=== PATIENT | female | born 1945 | race Caucasian/White ===

== ENCOUNTER 2021-10-14 10:37 | Inpatient (IN) | payer MEDICARE, SELFPAY ==
[2021-10-14] VITALS (9 sets, daily range): BP systolic 161–193; BP diastolic 54–94; PULSE 82–101; RESP 16–18; TEMP 36.6–37.1; O2SAT 95–98; BMI 23.0; BMI 22.4
--- NOTE | 2021-10-14 11:19 | ED.VIS.GI ---
HPI HPI - GI History of Present Illness Chief Complaint: Nausea/Vomiting Narrative Narrative: 76-year-old female presenting with nausea/vomiting. She states that she has had this for about a week. She states initially she was able to hold down some food and fluids but has gradually not been able to eat or drink anything. She has been throwing up her blood pressure medication as well. She has not had a fever. She denies abdominal pain except for bloating and cramping generally. She does not have any urinary complaints. She denies chest pain, palpitations, shortness of breath. She has had a mild headache intermittently. She states has been sleeping a lot. Patient also states she was recently around her granddaughter who had mono. PFSH [facility] Home Medications amlodipine 10 mg PO DAILY 10/14/21 [History Last Taken Unknown] metoprolol tartrate 50 mg PO BID 10/14/21 [History Last Taken Unknown] Allergy/AdvReac Type Severity Reaction Status Date / Time No Known Allergies Allergy Verified 10/14/21 10:47 Social History Smoking Status: Never smoker ROS ROS ED Constitutional Constitutional ED: Denies chills or fever(s) ENT ENT ED: Denies rhinorrhea or sore throat Cardiovascular Cardiovascular: Denies chest pain or palpitations Respiratory/Chest Respiratory/Chest: Denies cough, dyspnea or sputum Gastrointestinal Gastrointestinal: Reports nausea and vomiting Genitourinary Genitourinary ED: Denies dysuria or hematuria Musculoskeletal Musculoskeletal: Denies myalgias or neck pain Integumentary Denies Abrasions or rash Neurologic Neurologic: Reports headache(s) EXAM Physical Exam Const Vital Signs: 10/14/21 10:39 10/14/21 11:12 10/14/21 14:07 Temperature 98.7 F Temperature Source Oral Pulse Rate 101 H 86 87 Respiratory Rate 16 16 Blood Pressure 161/75 H 169/94 H Blood Pressure Mean 103 119 Pulse Ox 97 97 97 Oxygen Delivery Method Room Air Room Air Room Air Oxygen Flow Rate (L/min) 10/14/21 14:21 Temperature Temperature Source Pulse Rate Respiratory Rate Blood Pressure 169/54 H Blood Pressure Mean 92 Pulse Ox 95 Oxygen Delivery Method Nasal Cannula Oxygen Flow Rate (L/min) 3 Positive well nourished and unkempt General Appearance ED: unkempt and NAD; Negative for pallor HEENT Reports dry mucous membranes HEENT Narrative: No posterior oropharyngeal erythema or edema. No exudates. Patent airway without stridor. normocephalic and atraumatic Mouth ED: Yes dry mucous membranes Mouth: dry mucous membranes Eyes PERRL and EOMs intact bilaterally Neck no lymphadenopathy and supple Resp normal respiratory effort and clear to auscultation bilaterally Cardio regular rate and regular rhythm GI non-tender and non-distended Palpation: soft Back/Spine no CVA tenderness Neuro Sensorium / Orientation: alert, oriented to person, oriented to place and oriented to time Psych mental status grossly normal and thought process normal Appearance: unkempt Skin General Skin Exam: Negative for jaundice or pallor Lesions: no lesions Rashes: no rashes MDM MDM MDM Narrative Medical decision making narrative: Patient initially presenting with nausea and vomiting. Patient was given a liter of IV fluids, Zofran. She felt improved. I obtained blood work which show she has a 15.8 white count. Her hemoglobin hematocrit are stable. There is a left shift of 8.3. Creatinine is 1.04 however the BUN is 29. Potassium is low at 3.0 and magnesium is obtained which is 1.6 which is borderline. The patient will need more IV fluids which will likely dilute her magnesium and potassium more than likely she will need admission for this. She does have a slight bump in her AST and her alkaline phosphatase at 118 and 305 respectively. Bilirubin is also elevated at 1.10. On reevaluation the patient stated she felt well. I told her I was can order her another liter of normal saline. Because of the patient's white blood cell count and extensive nausea and vomiting with elevated LFTs I did obtain a CT scan of the abdomen pelvis and as this is being performed by had a phone call from the [employer] which stated that it looked like she had breast cancer and at that point it was determined to go ahead and scan her chest. This does show multiple large masses are seen in the right breast with extension into the anterior lateral aspect of the upper abdominal wall with diffuse subcutaneous edema and soft tissue swelling.There is hepatic metastasis and a small amount of pericholecystic fluid as well as small amount of fluid in the pelvis. The patient had not informed me that she has had this issue. I went back into the room and reevaluated her chest and there are multiple areas on the right breast that appear nodular. The entire breast is swollen and firm. There are large areas of necrosis and the breast is foul-smelling. It is not exquisitely tender. Patient at this point told me that she was seeing a homeopathic doctor who is treating her breast cancer with potassium and calcium supplements. She has been doing this for 3 years and this may explain why her calcium is still high. She states he has been dealing with the breast cancer itself for about 6 years. I feel the patient still will require admission for dehydration and electrolyte supplementation. Discussed with the hospitalist for admission. Impression: 1. Nausea/vomiting 2. Hypokalemia 3. Hypercalcemia 4. Metastatic breast cancer 5. Dehydration Lab Data Attestation: I reviewed the patient's lab results. Labs: Laboratory Results - last 24 hr 10/14/21 10/14/21 10/14/21 10:46 10:46 10:46 WBC 15.8 H RBC 4.82 Hgb 14.4 Hct 43.3 MCV 89.8 MCH 29.9 MCHC 33.3 RDW Std Deviation 48.5 H RDW Coeff of Samuel 14.8 H Plt Count 616 H MPV 11.6 Immature Gran % (Auto) 0.700 Neut % (Auto) 80.3 H Lymph % (Auto) 10.1 L [place] % (Auto) 8.6 Eos % (Auto) 0.1 Baso % (Auto) 0.2 Absolute Neuts (auto) 12.7 H Absolute Lymphs (auto) 1.60 Nucleated RBC % 0 Sodium 138 Potassium 3.0 L Chloride 93 L Carbon Dioxide 26.0 Anion Gap 19 H BUN 29 H Creatinine 1.04 H Estim Creat Clear Calc 34.18 Est GFR (MDRD) Af Amer 66 Est GFR (MDRD) Non-Af 55 L BUN/Creatinine Ratio 27.9 H Glucose 72 L Calcium 15.1 H* Magnesium Total Bilirubin 1.10 H AST 118 H ALT 46 Alkaline Phosphatase 305 H Total Protein 7.9 Albumin 2.8 L Globulin 5.1 H Albumin/Globulin Ratio 0.5 L Lipase 14 L Urine Color Urine Clarity Urine pH Ur Specific [place] Urine Protein Urine Glucose (UA) Urine Ketones Urine Occult Blood Urine Nitrite Urine Bilirubin Urine Urobilinogen Ur Leukocyte Esterase Urine RBC Urine WBC Ur Squamous Epith Cells Urine Bacteria Urine Mucus Monoscreen Negative 10/14/21 10/14/21 10:46 12:25 WBC RBC Hgb Hct MCV MCH MCHC RDW Std Deviation RDW Coeff of Samuel Plt Count MPV Immature Gran % (Auto) Neut % (Auto) Lymph % (Auto) [place] % (Auto) Eos % (Auto) Baso % (Auto) Absolute Neuts (auto) Absolute Lymphs (auto) Nucleated RBC % Sodium Potassium Chloride Carbon Dioxide Anion Gap BUN Creatinine Estim Creat Clear Calc Est GFR (MDRD) Af Amer Est GFR (MDRD) Non-Af BUN/Creatinine Ratio Glucose Calcium Magnesium 1.6 Total Bilirubin AST ALT Alkaline Phosphatase Total Protein Albumin Globulin Albumin/Globulin Ratio Lipase Urine Color Yellow Urine Clarity Sl. Cloudy Urine pH 6.0 Ur Specific [place] 1.025 Urine Protein 30 H Urine Glucose (UA) Normal Urine Ketones 150 A* Urine Occult Blood Negative Urine Nitrite Negative Urine Bilirubin Negative Urine Urobilinogen Normal Ur Leukocyte Esterase 25 H Urine RBC 0 SEEN Urine WBC 0-5 SEEN Ur Squamous Epith Cells 0-5 SEEN Urine Bacteria 0 SEEN Urine Mucus 0 SEEN Monoscreen Radiography Diagnostic Testing: Clinical Impression(s) from Imaging Studies Abdomen/Pelvis CT 10/14/21 13:50 IMPRESSION: Multiple large masses are seen in the right breast with extension into the anterior lateral aspect of the upper abdominal wall with diffuse subcutaneous edema and soft tissue swelling. Hepatic metastasis. Small amount of pericholecystic fluid as well as small amount of fluid in the pelvis. Left renal cysts. Electronically Signed: Kleber Calix MD at 15:08 EST , Chest CT 10/14/21 14:29 IMPRESSION: Multiple large masses in the right breast with extension to the lower thoracic and abdominal james with some faint edema and overlying skin thickening. Small pulmonary nodules at both lung bases more prominent on the right lung base. Enlarged bilateral axillary lymph nodes more prominent on the right side. Liver metastasis. Electronically Signed: Kleber Calix MD at 15:12 EST , Discharge Plan Triage Chief Complaint: Nausea/Vomiting ED Provider: Michael Lance Dx/Rx/DC Orders Primary Care Provider: Cyndi Tyson
[2021-10-14 11:26] LABS: Absolute Neutrophil Count 12.7 X10^3/uL (2.0-7.7); Basophil# 0.03 X10^3/uL; Basophil% 0.2 % (0-1); Eosinophil# 0.01 X10^3/uL; Eosinophils% 0.1 % (0-5); Hematocrit 43.3 % (37-47); Hemoglobin 14.4 g/dL (12.0-15.0); Lymphocyte % 10.1 % (19-41); Mean Corp Hgb Conc 33.3 g/dL (32-36); Mean Corpuscular Hgb 29.9 pg (27.0-32.0); Mean Corpuscular Volume 89.8 fL (81-99); Mean Platelet Vol. 11.6 fl (6.2-12.0); Monocyte# 1.35 X10^3/uL; Monocyte% 8.6 % (0-10); NRBC Flagged by Analyzer 0 % (0-5); Neutrophil # 12.67 X10^3/uL (2.7-7.7); Neutrophil % 80.3 % (47-70); Platelet Count 616 K/mm3 (150-450); RBC Distribution Width CV 14.8 % (11.6-14.6); RBC Distribution Width SD 48.5 fl (35.1-43.9); Red Blood Count 4.82 M/mm3 (4.2-5.4); White Blood Count 15.8 K/mm3 (4.4-11.0)
[2021-10-14] MEDS: Ondansetron 4 MG/2 ML Vial IV (11:26)
[2021-10-14] MEDS: 0.9% Normal Saline 1,000 ML 1000 ML IV (11:26)
[2021-10-14 11:28] LABS: Internal QC Validated? YES +Cl - CLEAR BKGD; Monotest Negative (Negative)
[2021-10-14] MEDS: Famotidine 200 MG/20 ML MDV 20 MG in 0.9% Normal Saline (Pres. free 8 ML 300 MG IV (11:49)
[2021-10-14 12:31] LABS: Bacteria 0 SEEN /hpf (None Seen); Mucous, Urine 0 SEEN /hpf (<or=2+); Red Blood Cells-Urine 0 SEEN /hpf (0-5)
[2021-10-14 12:35] LABS: Color, Urine Yellow (Yellow); Glucose, Dipstick Normal (Normal); Leukocyte Esterase-Dipstick 25 /ul (Negative); Nitrite-Dipstick Negative (Negative); Occult Blood-Urine Negative /ul (Negative); Protein-Dipstick 30 mg/dl (Negative); Specific Gravity, Urine 1.025 (1.002-1.030); Urine Bilirubin Dipstick Negative (Negative); Urine Clarity Sl. Cloudy (Clear); Urine Urobilinogen Normal (Normal)
[2021-10-14 12:42] LABS: Ketone-Dipstick 150 mg/dl (Negative)
[2021-10-14 12:43] LABS: Squamous Epithelial Cells - UA 0-5 SEEN /hpf (5-10); White Blood Cells 0-5 SEEN /hpf (0-5)
[2021-10-14 13:48] LABS: ALB/GLOB Ratio 0.5 RATIO (0.9-2.4); AST(SGOT) 118 U/L (15-37); Alanine Aminotransfer ALT/SGPT 46 U/L (13-56); Albumin, Serum 2.8 g/dL (3.2-5.0); Alkaline Phosphatase 305 U/L (45-117); Anion Gap 19 (5-15); BUN 29 mg/dL (7-18); BUN/Creat Ratio 27.9 RATIO (10-20); Calcium,Total 15.1 mg/dL (8.5-10.1); Chloride 93 mmol/L (98-107); Creatinine, Serum 1.04 mg/dL (0.55-1.02); EST Glomerular Filtration Rate 55 mL/min (>60); Est Glom Filt Rate - Afr Amer 66 mL/min (>60); Estimated Creatinine Clearance 34.18 ml/min; Globulin 5.1 g/dL (2.2-4.2); Glucose 72 mg/dL (74-106); Lipase 14 U/L (73-393); Protein, Total 7.9 g/dL (6.4-8.2); Sodium Level 138 mmol/L (136-145)
--- NOTE | 2021-10-14 13:50 | CT_ITS ---
STUDY: CT ABDOMEN AND PELVIS WITH CONTRAST REASON FOR EXAM: Female, 76 years old. 8 day history of nausea and vomiting. Abdominal pain. RADIATION DOSAGE (If Supplied By Facility): CTDIvol = ( 8.87 ) mGy, DLP = ( 374.33 ) mGycm TECHNIQUE: Transaxial images were obtained from the dome of the diaphragm to the symphysis pubis without oral contrast. IV 100mL [id number]-[id number] was administered. Sagittal and coronal images were reconstructed. Individualized dose optimization techniques were used for this CT. COMPARISON: None. FINDINGS: There are multiple large masses throughout the right breast and extending into the anterior lateral aspect of the lower thorax and upper abdomen. Increased markings in the subcutaneous tissues suggestive of a subcutaneous edema and overlying skin thickening. Several small nodules are seen at both lung bases slightly more prominent on the right lung base suggestive of metastatic disease. Coronary artery calcification. Heterogeneous appearance of both lobes of the liver. Metastatic deposits are seen in both lobes. Small amount of pericholecystic fluid. Normal spleen. Normal pancreas. Normal bilateral adrenal glands. Normal right kidney. Left renal cysts. The largest cyst measures 3.3 cm x 3 cm. Normal visualized stomach. Normal small intestine. There are scattered colonic diverticula consistent with diverticulosis. The appendix is visualized and appears normal. There is diffuse atherosclerotic calcification of the abdominal aorta and its major visceral branches, without a demonstrated aneurysm. Normal inferior vena cava. Normal retroperitoneum. Normal urinary bladder. Tiny amount of free fluid is seen in the pelvis. Normal abdominal wall. There are degenerative changes of the visualized lumbar spine. Minimal anterolisthesis of L4 on L5. CT/Abdomen/Pelvis W IV Cont ONLY IMPRESSION: Multiple large masses are seen in the right breast with extension into the anterior lateral aspect of the upper abdominal wall with diffuse subcutaneous edema and soft tissue swelling. Hepatic metastasis. Small amount of pericholecystic fluid as well as small amount of fluid in the pelvis. Left renal cysts. Electronically Signed: Kleber Calix MD at 15:08 EST ,
[2021-10-14] MEDS: 0.9% Normal Saline 1,000 ML 999 ML IV (14:06)
[2021-10-14 14:09] LABS: Magnesium 1.6 mg/dL (1.6-2.6)
--- NOTE | 2021-10-14 14:29 | CT_ITS ---
STUDY: CT CHEST WITHOUT CONTRAST REASON FOR EXAM: Female, 76 years old. Chest mass RADIATION DOSAGE (If Supplied By Facility): CTDIvol = ( 6.97 ) mGy, DLP = ( 242.00 ) mGycm TECHNIQUE: Transaxial imaging was performed without the administration of intravenous contrast material. Multiplanar coronal and sagittal images were reformatted. Individualized dose optimization techniques were used for this CT. COMPARISON: None. FINDINGS: Multiple masses are seen in the right breast extending into the anterior chest wall and along the superior right lateral abdominal wall with diffuse skin thickening and subcutaneous edema. Enlarged bilateral axillary lymph nodes more prominent in the right axillary region. Small nodules are seen at both lung bases more prominent on the right side. There is no demonstrated pleural abnormality. There are calcifications of the coronary arteries. Normal mediastinum. Normal hilar regions. Normal unenhanced pulmonary arteries. There is atherosclerotic calcification of the aortic arch with tortuosity and elongation of the aortic arch and descending thoracic aorta. There are multi-level degenerative changes of the thoracic spine. Heterogeneous appearance of the liver. Metastatic disease should be ruled out. CT/Chest without Contrast IMPRESSION: Multiple large masses in the right breast with extension to the lower thoracic and abdominal james with some faint edema and overlying skin thickening. Small pulmonary nodules at both lung bases more prominent on the right lung base. Enlarged bilateral axillary lymph nodes more prominent on the right side. Liver metastasis. Electronically Signed: Kleber Calix MD at 15:12 EST ,
--- NOTE | 2021-10-14 14:34 | PCM.HP.STD ---
HPI - General General Date of Admission: 10/14/21 Date of Service: 10/14/21 Chief Complaint: Intractable nausea, emesis x 8 days HPI Narrative The patient is a 76 y/o F w/ PMHx: HTN who presents to the [facility] ED on 10/14/21 with history ongoing intractable nausea and emesis x1 week initially able to hold some food and some fluids down however she is gradually been unable to have any intake even inability to keep down her blood pressure medication with no fevers or chills associated. Patient notes also mild intermittent headache and significant fatigue and malaise. She does report recent family members who had mono however she denies any recent sore throat. Following lengthy discussion patient does report that she has had a right growing foul-smelling necrotic breast mass for the last several years potentially up to 4-5 but she states she cannot exactly recall onset timeline. She denies any specific pain associated. She says she has been very hesitant and secretive about it because she is afraid of cancer treatment. Discussed current concerns for metastatic breast cancer with her and reported CT findings to which she noted understanding. She is interested in being evaluated for treatments but not sure which she is willing to have. She does report currently feeling improved following nausea treatments. She has been able to tolerate oral liquids in the ED. Work-up in the ED included T 98.7, heart rate 101 initially with most recent repeat 87, BP 161/75, respiratory rate 16, 97% on room air, CBC with WC 15.8, hemoglobin 14.4, platelets 616 with left shift, CMP with potassium 3.0, chloride 93, anion gap 19, BUN/creatinine 29/1.04, glucose 72, calcium 15.1, magnesium 1.6, total bilirubin 1.10, AST/ALT 118/46, alk phos 305, lipase 14, urinalysis with specific gravity 1.025, urine protein 30, urine glucose normal, urine ketones 150, negative occult blood, negative nitrite, 25 leukocyte esterase, no evidence of UTI but significant dehydration, negative mono screen, CT abdomen and pelvis with multiple large masses in the right breast with extension to the anterior lateral aspect of the upper abdominal wall with diffuse subcutaneous edema and soft tissue edema, hepatic metastases, small amount of pericholecystic fluid as well as a small amount of fluid in the pelvis, large renal cysts, CT chest multiple large masses in the right breast with extension to the lower thoracic and abdominal wall with some faint edema overlying the skin thickening, small pulmonary nodules at both lung bases more prominent in the right lung base, enlarged bilateral axillary lymph nodes more prominent on the right side, liver metastases. In the ED patient ministered Zofran, normal saline 2 L bolus in addition to IV famotidine. PFSH Medical History Anxiety Hearing loss, right HTN (hypertension) Metastatic cancer Non-smoker Home Medications amlodipine 10 mg PO DAILY 10/14/21 [History Last Taken Unknown] metoprolol tartrate 50 mg PO BID 10/14/21 [History Last Taken Unknown] Allergy/AdvReac Type Severity Reaction Status Date / Time No Known Allergies Allergy Verified 10/14/21 10:47 Family History (Updated 10/14/21 @ 17:[address] Margoth Cruz MD) Father Heart disease Myocardial infarction Hypertension Mother Leukemia Surgical History (Updated 10/14/21 @ 17:[address] Margoth Cruz MD) No history of previous surgery Social History (Updated 10/14/21 @ 17:[address] Margoth Cruz MD) household members: spouse Smoking Status: Never smoker alcohol intake: never substance use type: does not use ROS ROS Narrative Admission Review of Systems: CONSTITUTIONAL: No weight loss, fever, chills,+ weakness or fatigue. HEENT: Eyes: No visual loss, blurred vision, double vision or yellow sclerae. Ears, Nose, Throat: No hearing loss, sneezing, congestion, runny nose or sore throat. SKIN: + Right breast masses, necrotic skin, foul odor. CARDIOVASCULAR: No chest pain, chest pressure or chest discomfort, palpitations, edema, orthopnea, syncopal events. RESPIRATORY: No shortness of breath, cough or sputum, wheezing, hemoptysis. GASTROINTESTINAL: + anorexia, nausea, vomiting, No diarrhea, abdominal pain, melena, BRBPR. GENITOURINARY: No dysuria, frequency, urgency or retention. NEUROLOGICAL: No headache, dizziness, syncope, paralysis, ataxia, numbness or tingling in the extremities, focal weakness, change in bowel or bladder control, seizure. MUSCULOSKELETAL: + muscle, back pain, joint pain or stiffness. HEMATOLOGIC: No anemia, bleeding or bruising. LYMPHATICS: No enlarged nodes. No history of splenectomy. PSYCHIATRIC: + history of depression or anxiety. ENDOCRINOLOGIC: No reports of sweating, cold or heat intolerance. No polyuria or polydipsia. ALLERGIES: No history of asthma, hives, eczema or rhinitis. Vital Signs Vital Signs Vital Signs: 10/14/21 10:39 10/14/21 11:12 10/14/21 14:07 Temperature 98.7 F Temperature Source Oral Pulse Rate 101 H 86 87 Respiratory Rate 16 16 Blood Pressure 161/75 H 169/94 H Blood Pressure Mean 103 119 Pulse Ox 97 97 97 Oxygen Delivery Method Room Air Room Air Room Air Oxygen Flow Rate (L/min) 10/14/21 14:21 Temperature Temperature Source Pulse Rate Respiratory Rate Blood Pressure 169/54 H Blood Pressure Mean 92 Pulse Ox 95 Oxygen Delivery Method Nasal Cannula Oxygen Flow Rate (L/min) 3 Weight Weight: 121 lb 11.123 oz Body Mass Index (BMI) 23.0 Physical Exam Narrative Physical Examination: General: Awake, alert, oriented x 3 and cooperative, seated upright in the ED bed in no apparent distress but did appear weak and needed assistance to get into the bed. Skin: Normal color, normal turgor, no icterus, no cyanosis except significant right chest breast mass, significantly large, regions of necrosis through to the skin, foul-smelling, nontender to palpation, no visible discharge currently. HEENT: AT/NC, EOMI, PERRLA, dry MM, no carotid bruits or JVD noted. Lungs: Diminished, greater bases, moderate effort, no rales, ronchi or wheezing. Heart: Mildly tachycardic with regular rhythm; no gallop, rub audible. Abdomen: Soft, despite CT findings NTTP, ND, distant normal BS, mild HM. Extremities: No cyanosis, clubbing, or edema. Neurological: Patient awake, alert, oriented as noted, cognitive function intact; pupils equally reactive to light and accommodation, cranial nerves II-XII grossly normal, moving all 4 extremities, no focal deficits, strength moderately global decreased secondary to underlying metastatic cancer and acute presentation. Psychiatric: Affect appears fatigued otherwise normal, no acute evidence of depressive or anxiety feelings but does have underlying history listed in chart of anxiety. Results Lab / Micro Data Result Diagrams: 10/14/21 10:46 10/14/21 10:46 Labs: Laboratory Results - last 24 hr 10/14/21 10:46: Monoscreen Negative 10/14/21 10:46: WBC 15.8 H, RBC 4.82, Hgb 14.4, Hct 43.3, MCV 89.8, MCH 29.9, MCHC 33.3, RDW Std Deviation 48.5 H, RDW Coeff of Samuel 14.8 H, Plt Count 616 H, MPV 11.6, Immature Gran % (Auto) 0.700, Neut % (Auto) 80.3 H, Lymph % (Auto) 10.1 L, [place] % (Auto) 8.6, Eos % (Auto) 0.1, Baso % (Auto) 0.2, Absolute Neuts (auto) 12.7 H, Absolute Lymphs (auto) 1.60, Nucleated RBC % 0 10/14/21 10:46: Sodium 138, Potassium 3.0 L, Chloride 93 L, Carbon Dioxide 26.0, Anion Gap 19 H, BUN 29 H, Creatinine 1.04 H, Estim Creat Clear Calc 34.18, Est GFR (MDRD) Af Amer 66, Est GFR (MDRD) Non-Af 55 L, BUN/Creatinine Ratio 27.9 H, Glucose 72 L, Calcium 15.1 H*, Total Bilirubin 1.10 H, AST 118 H, ALT 46, Alkaline Phosphatase 305 H, Total Protein 7.9, Albumin 2.8 L, Globulin 5.1 H, Albumin/Globulin Ratio 0.5 L, Lipase 14 L 10/14/21 10:46: Magnesium 1.6 10/14/21 12:25: Urine Color Yellow, Urine Clarity Sl. Cloudy, Urine pH 6.0, Ur Specific [place] 1.025, Urine Protein 30 H, Urine Glucose (UA) Normal, Urine Ketones 150 A*, Urine Occult Blood Negative, Urine Nitrite Negative, Urine Bilirubin Negative, Urine Urobilinogen Normal, Ur Leukocyte Esterase 25 H, Urine RBC 0 SEEN, Urine WBC 0-5 SEEN, Ur Squamous Epith Cells 0-5 SEEN, Urine Bacteria 0 SEEN, Urine Mucus 0 SEEN Assessment & Plan Assessment/Plan (1) Intractable nausea and vomiting: PLAN: The patient is a 76 y/o F w/ PMHx: HTN who presents to the [facility] ED on 10/14/21 with history ongoing intractable nausea and emesis x1 week initially able to hold some food and some fluids down however she is gradually been unable to have any intake even inability to keep down her blood pressure medication with no fevers or chills associated. #1. Intractable nausea and emesis suspected secondary to underlying progressive metastatic cancer: We will admit patient medical surgical floor, given clinical improvement will allow cardiac diet, if any further nausea or emesis will transition to clear liquids, n.p.o. after midnight for surgery and oncology evaluations as noted, will repeat CBC, CMP in a.m. to assure improved labs, maintain on judicious IV fluids, as needed antiemetic regimen, fall precautions. Case management consulted for discharge planning given presentation. #2. Metastatic cancer, suspect breast with metastases to liver, lung, lymph: CT abdomen and pelvis with multiple large masses in the right breast with extension to the anterior lateral aspect of the upper abdominal wall with diffuse subcutaneous edema and soft tissue edema, hepatic metastases, small amount of pericholecystic fluid as well as a small amount of fluid in the pelvis, large renal cysts, CT chest multiple large masses in the right breast with extension to the lower thoracic and abdominal wall with some faint edema overlying the skin thickening, small pulmonary nodules at both lung bases more prominent in the right lung base, enlarged bilateral axillary lymph nodes more prominent on the right side, liver metastases. Discussed case with general surgery, Dr. Taveras with planned evaluation, potentially would only place port with need for chemotherapy to shrink the cancer per discussion with him prior to any consideration of surgical intervention. Will consult oncology especially given timeline and delayed care. #3. Hypercalcemia: Admission calcium 15.1, ionized requested, aggressively hydrated with 2 L in the ED, will continue and will plan repeat BMP later in the day. Do suspect there to be upcoming elevations likely secondary to underlying cancer, undiagnosed. If continued elevations will further aggressively treat as needed. #4. Hypokalemia: Admission K+ 3.0, magnesium 1.6, supplementation given, repeat level in AM. #5. Suspected Chronic Kidney Disease Stage III, unclear subtype: Admission BUN/Cr 29/1.04, creatinine clearance 34, GFR 50-60, baseline renal function unknown, could certainly be mild acute renal insufficiency on chronic but unclear, will repeat CMP in AM. #6. Hypertension: Continue home regimen including metoprolol, amlodipine, PRN hydralazine. #7. DVT prophylaxis: SCDs, hold on chemoprophylaxis for possible Bx/surgical evaluation. #8. CODE status: Patient SHIRLEY is her and living will is currently in place but following discussions this potentially may be a trust but she is unclear. Discussed CODE status at length including difference between FULL code, DNR-CCA and DNR-CC status. Following discussions about the differences in these status, requested Full Code status. Did discuss that with the progressive nature of recurrent cancer unfortunately if something acute did happen her prognosis would likely be a poor outcome. Advanced Care Planning Face to Face Time: 16 minutes. Charges/Coding Visit Charges Inpatient E&M: 03351 Init Hosp L3 Procedures Hospitalists Procedures: 91458 Advncd Care Plan 30 Min
--- NOTE | 2021-10-14 15:40 | NURSING ---
MED SURG WHITE DEYDRATION, HYPERCALCEMIA, BREAST CANCER WITH METS
--- NOTE | 2021-10-14 15:57 | ED.RN ---
PT. REPORTS TAKING HOME MEDICATION, THEY HAD MANY LEFT OVER FROM PREVIOUS PRESCRIPTIONS. MED KEVAN SAID THEY CALLED [facility] AND PRESCRIPTIONS HAVE NOT BEEN FILLED SINCE JANUARY OF 2021. PT. HAS BEEN USING HOMEOPATHIC TREATMENT FOR BREAST CANCER. PT. HAS LARGE NECROTIC WOUND ON RIGHT BREAST. PT. INITIALLY DID NOT NOTIFY HEALTH CARE STAFF OF CANCER.
[2021-10-14] MEDS: Potassium Chloride Oral Tablet 20 MEQ 40 MEQ PO (17:09)
[2021-10-14] MEDS: amLODIPine 10 MG Tablet PO (17:09)
[2021-10-14] MEDS: 0.9% Normal Saline 1,000 ML 15 ML IV (17:10)
[2021-10-14] MEDS: Acetaminophen 325 MG Tablet 650 MG PO (21:01)
[2021-10-14] MEDS: Metoprolol Tartrate 50 MG Tablet PO (21:02)
[2021-10-14] MEDS: hydrALAZINE 20 MG/ML Vial 10 MG IV (21:31)
[2021-10-14] MEDS: 0.9% Saline Lock 10 ML Syringe IV (21:31)
[2021-10-15] VITALS (8 sets, daily range): BP systolic 150–180; BP diastolic 55–71; PULSE 69–80; RESP 18–20; TEMP 36.6–37.1; O2SAT 93–96
[2021-10-15] MEDS: hydrALAZINE 20 MG/ML Vial 10 MG IV (04:05)
[2021-10-15 05:52] LABS: Absolute Lymphocyte Count 1.36 X10^3/uL (0.83-4.51); Absolute Neutrophil Count 9.1 X10^3/uL (2.0-7.7); Basophil# 0.03 X10^3/uL; Basophil% 0.3 % (0-1); Eosinophil# 0.04 X10^3/uL; Eosinophils% 0.3 % (0-5); Hematocrit 33.4 % (37-47); Hemoglobin 11.1 g/dL (12.0-15.0); Lymphocyte # 1.36 X10^3/ul (0.83-4.51); Lymphocyte % 11.4 % (19-41); Mean Corp Hgb Conc 33.2 g/dL (32-36); Mean Corpuscular Hgb 29.4 pg (27.0-32.0); Mean Corpuscular Volume 88.6 fL (81-99); Mean Platelet Vol. 10.6 fl (6.2-12.0); Monocyte# 1.31 X10^3/uL; NRBC Flagged by Analyzer 0 % (0-5); Neutrophil # 9.09 X10^3/uL (2.7-7.7); Neutrophil % 76.6 % (47-70); Platelet Count 426 K/mm3 (150-450); RBC Distribution Width CV 14.9 % (11.6-14.6); RBC Distribution Width SD 47.9 fl (35.1-43.9); Red Blood Count 3.77 M/mm3 (4.2-5.4); White Blood Count 11.9 K/mm3 (4.4-11.0)
[2021-10-15 06:03] LABS: International Normalized Ratio 1.2; Prothrombin Time (Protime)PT. 14.3 SECONDS (11.7-14.9)
--- NOTE | 2021-10-15 06:51 | CON.PCM.SX_ITS ---
Assessment & Plan Assessment/Plan (1) Breast mass, right: QUALIFIERS: Breast mass location: upper outer quadrant Qualified Code(s): N63.11 - Unspecified lump in the right breast, upper outer quadrant PLAN: Patient has extremely large breast cancer of the right breast and CT scan shows spread to the right axilla as well as liver. I do not believe surgery would be appropriate for this large stage IV breast mass. There would be no coverage for skin and there is extensive spread to the axilla. I will be available for breast biopsy if necessary and port placement if necessary. I would like the patient to speak with oncology before anything is performed as she also seems to be leaning toward hospice. If oncology decides they would like biopsy and subsequent port placement for chemotherapy I will be available to do that tomorrow. I will order her diet today as there is no plans for surgery today and she reports no nausea or vomiting today. Checo Taveras MD Pager: [facility] [address] [place] [address], [address] [place] [address] Office: HPI Consult Data Date of Consult: 10/15/21 HPI Narrative HPI Narrative: NERISSA POLLACK, is a 76 F who presents to the emergency room with nausea and vomiting. Patient reports that she has had a breast mass for several years. She does report some drainage from the nipple. This morning she says that she is not having any nausea or vomiting. PFSH Medical History Anxiety Hearing loss, right HTN (hypertension) Metastatic cancer Non-smoker Home Medications albuterol sulfate 1 inh INHALATION Q6H PRN 10/14/21 [History Last Taken Unknown] amlodipine 10 mg PO DAILY 10/14/21 [History Last Taken Unknown] hydrochlorothiazide 50 mg PO DAILY 10/14/21 [History Last Taken Unknown] lisinopril 40 mg PO DAILY 10/14/21 [History Last Taken Unknown] metoprolol tartrate 50 mg PO BID 10/14/21 [History Last Taken Unknown] Allergy/AdvReac Type Severity Reaction Status Date / Time No Known Allergies Allergy Verified 10/14/21 10:47 Family History (Updated 10/14/21 @ 17:[address] Margoth Cruz MD) Father Heart disease Myocardial infarction Hypertension Mother Leukemia Surgical History (Updated 10/14/21 @ 17:[address] Margoth Cruz MD) No history of previous surgery Social History (Updated 10/14/21 @ 17:[address] Margoth Cruz MD) household members: spouse Smoking Status: Never smoker alcohol intake: never substance use type: does not use ROS ROS Narrative Admission Review of Systems: CONSTITUTIONAL: No weight loss, fever, chills,+ weakness or fatigue. HEENT: Eyes: No visual loss, blurred vision, double vision or yellow sclerae. Ears, Nose, Throat: No hearing loss, sneezing, congestion, runny nose or sore throat. SKIN: + Right breast masses, necrotic skin, foul odor. CARDIOVASCULAR: No chest pain, chest pressure or chest discomfort, palpitations, edema, orthopnea, syncopal events. RESPIRATORY: No shortness of breath, cough or sputum, wheezing, hemoptysis. GASTROINTESTINAL: + anorexia, nausea, vomiting, No diarrhea, abdominal pain, melena, BRBPR. GENITOURINARY: No dysuria, frequency, urgency or retention. NEUROLOGICAL: No headache, dizziness, syncope, paralysis, ataxia, numbness or tingling in the extremities, focal weakness, change in bowel or bladder control, seizure. MUSCULOSKELETAL: + muscle, back pain, joint pain or stiffness. HEMATOLOGIC: No anemia, bleeding or bruising. LYMPHATICS: No enlarged nodes. No history of splenectomy. PSYCHIATRIC: + history of depression or anxiety. ENDOCRINOLOGIC: No reports of sweating, cold or heat intolerance. No polyuria or polydipsia. ALLERGIES: No history of asthma, hives, eczema or rhinitis. Physical Exam Const alert and oriented x3 HEENT normocephalic Neck full ROM Lymph Lymphatic: lymphadenopathy Lymphadenopathy Laterality: right Chest Chest Narrative: Large right breast mass with necrosis at the nipple Resp normal respiratory effort Cardio regular rate and regular rhythm GI normal to inspection, nondistended, normoactive bowel sounds Lab / Micro Data Result Diagrams: 10/15/21 05:25 10/14/21 10:46 Labs: Laboratory Results - last 24 hr 10/14/21 10:46: Monoscreen Negative 10/14/21 10:46: WBC 15.8 H, RBC 4.82, Hgb 14.4, Hct 43.3, MCV 89.8, MCH 29.9, MCHC 33.3, RDW Std Deviation 48.5 H, RDW Coeff of Samuel 14.8 H, Plt Count 616 H, MPV 11.6, Immature Gran % (Auto) 0.700, Neut % (Auto) 80.3 H, Lymph % (Auto) 10 .1 L, [place] % (Auto) 8.6, Eos % (Auto) 0.1, Baso % (Auto) 0.2, Absolute Neuts (auto) 12.7 H, Absolute Lymphs (auto) 1.60, Nucleated RBC % 0 10/14/21 10:46: Sodium 138, Potassium 3.0 L, Chloride 93 L, Carbon Dioxide 26.0, Anion Gap 19 H, BUN 29 H, Creatinine 1.04 H, Estim Creat Clear Calc 34.18, Est GFR (MDRD) Af Amer 66, Est GFR (MDRD) Non-Af 55 L, BUN/Creatinine Ratio 27.9 H, Glucose 72 L, Calcium 15.1 H*, Total Bilirubin 1.10 H, AST 118 H, ALT 46, Alkaline Phosphatase 305 H, Total Protein 7.9, Albumin 2.8 L, Globulin 5.1 H, Albumin/Globulin Ratio 0.5 L, Lipase 14 L 10/14/21 10:46: Magnesium 1.6 10/14/21 12:25: Urine Color Yellow, Urine Clarity Sl. Cloudy, Urine pH 6.0, Ur Specific [place] 1.025, Urine Protein 30 H, Urine Glucose (UA) Normal, Urine Ketones 150 A*, Urine Occult Blood Negative, Urine Nitrite Negative, Urine Bilirubin Negative, Urine Urobilinogen Normal, Ur Leukocyte Esterase 25 H, Urine RBC 0 SEEN, Urine WBC 0-5 SEEN, Ur Squamous Epith Cells 0-5 SEEN, Urine Bacteria 0 SEEN, Urine Mucus 0 SEEN 10/15/21 05:25: WBC 11.9 H, RBC 3.77 L, Hgb 11.1 L, Hct 33.4 L, MCV 88.6, MCH 29.4, MCHC 33.2, RDW Std Deviation 47.9 H, RDW Coeff of Samuel 14.9 H, Plt Count 426, MPV 10.6, Immature Gran % (Auto) 0.400, Neut % (Auto) 76.6 H, Lymph % (Auto) 11.4 L, [place] % (Auto) 11.0 H, Eos % (Auto) 0.3, Baso % (Auto) 0.3, Absolute Neuts (auto) 9.1 H, Absolute Lymphs (auto) 1.36, Nucleated RBC % 0 10/15/21 05:25: PT 14.3, INR 1.2, APTT 31.0 Radiology Impression Abdomen/Pelvis CT 10/14/21 13:50 IMPRESSION: Multiple large masses are seen in the right breast with extension into the anterior lateral aspect of the upper abdominal wall with diffuse subcutaneous edema and soft tissue swelling. Hepatic metastasis. Small amount of pericholecystic fluid as well as small amount of fluid in the pelvis. Left renal cysts. Electronically Signed: Kleber Calix MD at 15:08 EST , Chest CT 10/14/21 14:29 IMPRESSION: Multiple large masses in the right breast with extension to the lower thoracic and abdominal james with some faint edema and overlying skin thickening. Small pulmonary nodules at both lung bases more prominent on the right lung base. Enlarged bilateral axillary lymph nodes more prominent on the right side. Liver metastasis. Electronically Signed: Kleber Calix MD at 15:12 EST ,
[2021-10-15 07:19] LABS: ALB/GLOB Ratio 0.5 RATIO (0.9-2.4); AST(SGOT) 82 U/L (15-37); Alanine Aminotransfer ALT/SGPT 33 U/L (13-56); Albumin, Serum 2.1 g/dL (3.2-5.0); Alkaline Phosphatase 212 U/L (45-117); Anion Gap 12 (5-15); BUN 27 mg/dL (7-18); BUN/Creat Ratio 34.2 RATIO (10-20); Calcium,Total 13.4 mg/dL (8.5-10.1); Chloride 102 mmol/L (98-107); Creatinine, Serum 0.79 mg/dL (0.55-1.02); EST Glomerular Filtration Rate 75 mL/min (>60); Est Glom Filt Rate - Afr Amer 91 mL/min (>60); Estimated Creatinine Clearance 35.55 ml/min; Glucose 64 mg/dL (74-106); Potassium 2.7 mmol/L (3.5-5.1); Protein, Total 6.1 g/dL (6.4-8.2); Sodium Level 142 mmol/L (136-145)
[2021-10-15] MEDS: 0.9% Normal Saline 1,000 ML 150 ML IV ×3 (08:45→22:52)
[2021-10-15] MEDS: Furosemide 40 MG/4 ML Vial IV ×2 (08:49→17:59)
[2021-10-15] MEDS: Potassium Chloride 10mEq/100mL 10 MEQ/100 ML IV.SOLN. 100 MEQ IV BOLUS ×4 (08:49→13:15)
[2021-10-15] MEDS: Ensure Clear 120 ML Liquid PO (09:02)
--- NOTE | 2021-10-15 09:55 | PN.HOSP_ITS ---
Subjective Subjective Patient seen and examined. She was admitted with a complaint of nausea and vomiting x 8 days. SHe also had a right necrotic breast mass which had been present for ~ 5 years for which she had not seen any physician about. She has no active complaints this morning. Her nausea and vomiting have improved. She denies any pain from the right breast mass. She denies any chest pain, palpitations or any other symptoms. REview of systems is otherwise negative. Objective Data Objective Data Vital Signs: Vital Signs Temp Pulse Resp BP Pulse Ox 97.8 F 69 20 H 150/62 H 94 10/15/21 08:12 10/15/21 08:12 10/15/21 08:12 10/15/21 08:12 10/15/21 08:12 Oxygen Flow Rate (L/min) 3 Oxygen Delivery Method Room Air Weight: 119 lb 11.376 oz Body Mass Index (BMI) 22.4 Intake & Output: Intake and Output for Last 24 Hours 10/13/21 10/14/21 10/15/21 23:59 23:59 23:59 Intake Total 3474 / 3474 0 / 0 Balance 3474 / 3474 0 / 0 Lab / Micro Data Result Diagrams: 10/15/21 05:25 10/15/21 05:25 Labs: Laboratory Results - last 24 hr 10/14/21 10:46: Monoscreen Negative 10/14/21 10:46: WBC 15.8 H, RBC 4.82, Hgb 14.4, Hct 43.3, MCV 89.8, MCH 29.9, MCHC 33.3, RDW Std Deviation 48.5 H, RDW Coeff of Samuel 14.8 H, Plt Count 616 H, MPV 11.6, Immature Gran % (Auto) 0.700, Neut % (Auto) 80.3 H, Lymph % (Auto) 10.1 L, [place] % (Auto) 8.6, Eos % (Auto) 0.1, Baso % (Auto) 0.2, Absolute Neuts (auto) 12.7 H, Absolute Lymphs (auto) 1.60, Nucleated RBC % 0 10/14/21 10:46: Sodium 138, Potassium 3.0 L, Chloride 93 L, Carbon Dioxide 26.0, Anion Gap 19 H, BUN 29 H, Creatinine 1.04 H, Estim Creat Clear Calc 34.18, Est GFR (MDRD) Af Amer 66, Est GFR (MDRD) Non-Af 55 L, BUN/Creatinine Ratio 27.9 H, Glucose 72 L, Calcium 15.1 H*, Total Bilirubin 1.10 H, AST 118 H, ALT 46, Alkaline Phosphatase 305 H, Total Protein 7.9, Albumin 2.8 L, Globulin 5.1 H, Albumin/Globulin Ratio 0.5 L, Lipase 14 L 10/14/21 10:46: Magnesium 1.6 10/14/21 12:25: Urine Color Yellow, Urine Clarity Sl. Cloudy, Urine pH 6.0, Ur Specific [place] 1.025, Urine Protein 30 H, Urine Glucose (UA) Normal, Urine Ketones 150 A*, Urine Occult Blood Negative, Urine Nitrite Negative, Urine Bilirubin Negative, Urine Urobilinogen Normal, Ur Leukocyte Esterase 25 H, Urine RBC 0 SEEN, Urine WBC 0-5 SEEN, Ur Squamous Epith Cells 0-5 SEEN, Urine Bacteria 0 SEEN, Urine Mucus 0 SEEN 10/15/21 05:25: WBC 11.9 H, RBC 3.77 L, Hgb 11.1 L, Hct 33.4 L, MCV 88.6, MCH 29.4, MCHC 33.2, RDW Std Deviation 47.9 H, RDW Coeff of Samuel 14.9 H, Plt Count 426, MPV 10.6, Immature Gran % (Auto) 0.400, Neut % (Auto) 76.6 H, Lymph % (Auto) 11.4 L, [place] % (Auto) 11.0 H, Eos % (Auto) 0.3, Baso % (Auto) 0.3, Absolute Neuts (auto) 9.1 H, Absolute Lymphs (auto) 1.36, Nucleated RBC % 0 10/15/21 05:25: PT 14.3, INR 1.2, APTT 31.0 10/15/21 05:25: Sodium 142, Potassium 2.7 L*, Chloride 102, Carbon Dioxide 28.0, Anion Gap 12, BUN 27 H, Creatinine 0.79, Estim Creat Clear Calc 35.55, Est GFR (MDRD) Af Amer 91, Est GFR (MDRD) Non-Af 75, BUN/Creatinine Ratio 34.2 H, Glucose 64 L, Calcium 13.4 H*, Total Bilirubin 0.60, AST 82 H, ALT 33, Alkaline Phosphatase 212 H, Total Protein 6.1 L, Albumin 2.1 L, Globulin 4.0, Albumin/Globulin Ratio 0.5 L Radiography Diagnostic Testing: Radiology Impression Abdomen/Pelvis CT 10/14/21 13:50 IMPRESSION: Multiple large masses are seen in the right breast with extension into the anterior lateral aspect of the upper abdominal wall with diffuse subcutaneous edema and soft tissue swelling. Hepatic metastasis. Small amount of pericholecystic fluid as well as small amount of fluid in the pelvis. Left renal cysts. Electronically Signed: Kleber Calix MD at 15:08 EST , Chest CT 10/14/21 14:29 IMPRESSION: Multiple large masses in the right breast with extension to the lower thoracic and abdominal james with some faint edema and overlying skin thickening. Small pulmonary nodules at both lung bases more prominent on the right lung base. Enlarged bilateral axillary lymph nodes more prominent on the right side. Liver metastasis. Electronically Signed: Kleber Calix MD at 15:12 EST , Physical Exam Const alert, oriented x3 and no apparent distress Exam Limitations: no limitations HEENT head/scalp atraumatic and moist oral mucous membranes Head and Scalp: normocephalic Eyes PERRL, EOMs intact bilaterally and conjunctivae normal Neck no lymphadenopathy, supple and no JVD Resp normal respiratory effort, no retractions, no use of accessory muscles and clear to auscultation bilaterally Cardio regular rate, regular rhythm, S1 normal heart sound, S2 normal heart sound and no murmurs GI normal to inspection, nondistended, normoactive bowel sounds, soft to palpation, non-tender and non-distended Extremity normal to inspection, full ROM and no clubbing, cyanosis or edema Peripheral Pulses: Yes pulses 2+ throughout Skin Skin Narrative: large, firm, nodular necrotic mass that has virtually replaced the right breast, non tender to touch; has very offensive odor Neuro oriented x3, CN's II-XII intact bilaterally and moves all extremities Sensorium / Orientation: awake and alert Psych affect normal Assessment & Plan Assessment/Plan (1) Breast mass, right: QUALIFIERS: Breast mass location: upper outer quadrant Qualified Code(s): N63.11 - Unspecified lump in the right breast, upper outer quadrant (2) Intractable nausea and vomiting: PLAN: #Intractable nausea and vomiting * improved. * patient says her granddaughter had the same symptoms and was diagnosed with EBV, so that was what she thought she had. * nausea and vomiting improving. * hydrate with IVF * IV zofran prn * #NEcrotic right breast mass, suspect metastatic breast cancer * has had breast mass for ~ 5 years, and says she was treating it with cannabis and other herbal treatment * CT of the abdomena nd pelvis showed hepatic mets and diffuse subcutaneous edema and soft tissue edema * CT chest showed multiple large masses in the right breast with extension to the lower thoracic and abdominal wall with some faint edema overlying the skin thickening, small pulmonary nodules at both lung bases and enlarged bilateral axillary lymph nodes, as well as liver mets * oncology and general surgery on board * per general surgery, surgery would not be appropriate for this large breast mass. * await oncology rec's * #Hypercalcemia * likely due to metastatic breast cancer * calcium was 15.1 on admission; now down to 13.4 * continue aggrssive hydration with IVF. WIll also give IV lasix to help bring down calcium * #Hypokalemia: Cr is 3.1. WIll replace and trend #Hypertension; on metoprolol and amlodipine DVT prophylaxis; will start lovenox Code status: full code Charges/Coding Visit Charges Inpatient E&M: 89078 Subs Hosp L3
[2021-10-15] MEDS: Lisinopril 40 MG Tablet PO (10:02)
[2021-10-15] MEDS: Metoprolol Tartrate 50 MG Tablet PO ×2 (10:03→20:50)
[2021-10-15] MEDS: amLODIPine 10 MG Tablet PO (10:08)
--- NOTE | 2021-10-15 12:35 | CASEMGMT ---
GILES DE LEÓN Assessment: Face to Face with pt for initial transition planning/care coordination assessment. GILES DE LEÓN introduced self and role at [facility], pt voices understanding and consents to assessment. Pt is A/O x4 and answers all questions appropriately at this time. Pt lying in bed in no distress with at bedside. Care providers, pharmacy, and demographics verified/updated. Admitting Dx: dehydration, hypercalcemia, hypokalemia PCP:[place] Specialists: Pt denies. Preferred Pharmacy: [facility] Retail Insurance: [employer] [facility] Prescription Benefit: yes LW/HPOA: Pt reports she has a LW/DPOA and her is her DPOA. She is aware this is not on file at [facility] and she may have brought in to be scanned into the chart. LNOK: Jorge Maddox, Living Arrangements: Pt lives with in a two story house with no steps to enter. Pt reports she was I in ADL's up to a few days ago. Pt denies concerns at home. Transportation: Pt drives self and denies concerns with transportation. DME/HHC/SNF: Pt has a walker, 2 canes at home but does not use. She uses the assistance of her to steady her only. Pt denies hx of HHC or SNF stays. Pt states no concerns with going home at time of dc. Pt is awaiting hospice consult. She states she has decided to pursue this avenue. She names her as her contact to discuss dc planning with. Pt states no further concerns/needs. CM to follow. Advised pt to ask CM if any further question/concerns/needs arise, voices understanding. Pt Goal: Home with hospice. Plan: Home with hospice consult pending.
--- NOTE | 2021-10-15 12:48 | ONC.CONSULT ---
Assessment & Plan Assessment/Plan (1) Breast cancer: Status: Acute Code(s): C50.919 - Malignant neoplasm of unspecified site of unspecified female breast Qualifiers: Breast location: overlapping sites of breast Estrogen receptor status: unspecified Patient sex: female Laterality: right Qualified Code(s): C50.811 - Malignant neoplasm of overlapping sites of right female breast Plan: This is a far advanced both locally and systemic (lungs, liver, lymph nodes, very likely extensive bone metastases with malignant hypercalcemia) right breast cancer treated unconventionally and reached a neglected terminal stage. Patient presents with cachexia intractable nausea and vomiting and malignant hypercalcemia. Plan: 1. Patient received pamidronate 10/14/2020 and is on IV fluids for malignant hypercalcemia. Total calcium is trending downwards.. 2. Advise comfort measures only on home hospice program. I met with patient and her and they are agreeable. Shalonda Fitzgerald MD Capacity Manager, [facility] Divisions of Medical Oncology & Hematology Department of Internal Medicine [place] [id number] This note was generated using a voice recognition system software. Although it was reviewed by the author prior to finalization, it may still contain incorrect words, spelling, and punctuation that were not noted when reviewing prior to saving. If a clinically significant typo or inaccurately typed phrase is noted, please notify the author. (2) Liver metastases: Status: Acute Code(s): C78.7 - Secondary malignant neoplasm of liver and intrahepatic bile duct (3) Regional lymph node metastasis present: Status: Acute Code(s): C77.9 - Secondary and unspecified malignant neoplasm of lymph node, unspecified (4) Lung metastases: Status: Acute Code(s): C78.00 - Secondary malignant neoplasm of unspecified lung Qualifiers: Laterality: bilateral Qualified Code(s): C78.01 - Secondary malignant neoplasm of right lung; C78.02 - Secondary malignant neoplasm of left lung (5) Hypercalcemia of malignancy: Status: Acute Code(s): E83.52 - Hypercalcemia (6) Cancer cachexia: Status: Acute Code(s): R64 - Cachexia (7) Intractable nausea and vomiting: Status: Acute Code(s): R11.2 - Nausea with vomiting, unspecified HPI Consult Data Date of Service:: 10/15/21 PCP / Referring Provider: Dr. Cyndi Tyson DO Attending: Dr. Pat Shahid MD Chief Complaint Chief Complaint: Breast cancer History of Present Illness History of Present Illness: 76-year-old female with an advanced widely metastatic right breast cancer. She has had the cancer for over 10 years, treated by nonconventional means including cannabis. Over the course of the past few months she has become increasingly weak, anorexic, losing weight, no she has an vomiting until she came to [facility] emergency room on 10/14/2021 where she was noted to be hypercalcemic in addition to widely metastatic and locally advanced right breast cancer. Until [place] and 3 daughters with their families. Advanced Directives Power of Biology Specialist: Yes Living Will: Yes PFSH Medical History (Updated 10/15/21 @ 12:[address] Shalonda Fitzgerald MD) Anxiety Breast cancer Cancer cachexia Hearing loss, right HTN (hypertension) Hypercalcemia of malignancy Liver metastases Lung metastases Metastatic cancer Non-smoker Regional lymph node metastasis present Home Medications albuterol sulfate 1 inh INHALATION Q6H PRN 10/14/21 [History Last Taken Unknown] amlodipine 10 mg PO DAILY 10/14/21 [History Last Taken Unknown] hydrochlorothiazide 50 mg PO DAILY 10/14/21 [History Last Taken Unknown] lisinopril 40 mg PO DAILY 10/14/21 [History Last Taken Unknown] metoprolol tartrate 50 mg PO BID 10/14/21 [History Last Taken Unknown] Allergy/AdvReac Type Severity Reaction Status Date / Time No Known Allergies Allergy Verified 10/14/21 10:47 Family History (Updated 10/14/21 @ 17:[address] Margoth Cruz MD) Father Heart disease Myocardial infarction Hypertension Mother Leukemia Surgical History (Updated 10/14/21 @ 17:[address] Margoth Cruz MD) No history of previous surgery Social History (Updated 10/14/21 @ 17:[address] Margoth Cruz MD) household members: spouse Smoking Status: Never smoker alcohol intake: never substance use type: does not use ROS Constitutional Constitutional: Reports fatigue, poor appetite and weight loss; Denies fever(s) or night sweats ENT HEENT: Denies dysphagia Cardiovascular Cardiovascular: Denies chest pain, dyspnea or edema Respiratory/Chest Respiratory/Chest: Reports breast mass, breast pain, breast skin changes and breast swelling; Denies cough, dyspnea, hemoptysis, pain on inspiration or wheezing Gastrointestinal Gastrointestinal: Reports anorexia, constipation, nausea and vomiting; Denies abdominal pain, hematochezia or melena Genitourinary Genitourinary: Denies change in urinary stream or hematuria Musculoskeletal Musculoskeletal: Denies back pain Integumentary Integumentary: Reports changing lesions; Denies rash Neurologic Neurologic: Denies abnormal speech, focal weakness, headache(s) or tingling Hematologic/Lymphatic Hematologic/Lymphatic: Denies easy bleeding or easy bruising Physical Exam Narrative ECOG 3, needs assistance with ADL Const alert and oriented x3 Constitutional Narrative: There is a foul smell that fails the entire room consistent with an extensively necrotic tumor General Appearance: ill appearing Positive for chronically and frail Nutritional Appearance: cachectic HEENT normocephalic Head and Scalp: atraumatic Mouth: dry mucous membranes Eyes PERRL and no scleral icterus Neck General: Negative for JVD Lymph Lymphatic: lymphadenopathy Lymphadenopathy Laterality: right (Axilla) Positive for multiple, hard, fixed and matted Chest Chest Narrative: There is extensive massive tumor involving the entire right chest wall with necrosis, drainage and foul smell Resp clear to auscultation bilaterally Cardio regular rate and regular rhythm GI soft to palpation and non-tender Palpation: hepatomegaly Extremity no clubbing, cyanosis or edema Extremity Narrative: Of lower extremities General Extremity: edema right upper extremity Skin Skin Narrative: Extensive tumor involving the entire anterior right chest wall Lesions: lesion noted Neuro moves all extremities and no focal motor deficits Motor Exam: general weakness Psych mental status grossly normal Vital Signs Temperature 97.8 F 10/15/21 08:12 Temperature Source Oral 10/15/21 08:12 Pulse Rate 69 10/15/21 10:20 Respiratory Rate 20 H 10/15/21 10:20 Respiratory Effort 10/15/21 10:20 Respiratory Depth Normal 10/15/21 10:20 Respiratory Pattern Normal 10/15/21 10:20 Blood Pressure 180/66 H 10/15/21 10:03 Blood Pressure Mean 91 10/15/21 08:12 Blood Pressure Source Monitor 10/15/21 08:12 Blood Pressure Position Semi-Fowlers 10/15/21 08:12 Blood Pressure Location Right Arm 10/15/21 08:12 Pulse Ox 95 10/15/21 11:02 Oxygen Delivery Method Room Air 10/15/21 11:02 Oxygen Flow Rate (L/min) 3 10/14/21 14:21 Laboratory Results - last 24 hr 10/14/21 10:46: Sodium 138, Potassium 3.0 L, Chloride 93 L, Carbon Dioxide 26.0, Anion Gap 19 H, BUN 29 H, Creatinine 1.04 H, Estim Creat Clear Calc 34.18, Est GFR (MDRD) Af Amer 66, Est GFR (MDRD) Non-Af 55 L, BUN/Creatinine Ratio 27.9 H, Glucose 72 L, Calcium 15.1 H*, Total Bilirubin 1.10 H, AST 118 H, ALT 46, Alkaline Phosphatase 305 H, Total Protein 7.9, Albumin 2.8 L, Globulin 5.1 H, Albumin/Globulin Ratio 0.5 L, Lipase 14 L 10/14/21 10:46: Magnesium 1.6 10/15/21 05:25: WBC 11.9 H, RBC 3.77 L, Hgb 11.1 L, Hct 33.4 L, MCV 88.6, MCH 29.4, MCHC 33.2, RDW Std Deviation 47.9 H, RDW Coeff of Samuel 14.9 H, Plt Count 426, MPV 10.6, Immature Gran % (Auto) 0.400, Neut % (Auto) 76.6 H, Lymph % (Auto) 11.4 L, [place] % (Auto) 11.0 H, Eos % (Auto) 0.3, Baso % (Auto) 0.3, Absolute Neuts (auto) 9.1 H, Absolute Lymphs (auto) 1.36, Nucleated RBC % 0 10/15/21 05:25: PT 14.3, INR 1.2, APTT 31.0 10/15/21 05:25: Sodium 142, Potassium 2.7 L*, Chloride 102, Carbon Dioxide 28.0, Anion Gap 12, BUN 27 H, Creatinine 0.79, Estim Creat Clear Calc 35.55, Est GFR (MDRD) Af Amer 91, Est GFR (MDRD) Non-Af 75, BUN/Creatinine Ratio 34.2 H, Glucose 64 L, Calcium 13.4 H*, Total Bilirubin 0.60, AST 82 H, ALT 33, Alkaline Phosphatase 212 H, Total Protein 6.1 L, Albumin 2.1 L, Globulin 4.0, Albumin/Globulin Ratio 0.5 L Diagnostic Data I personally reviewed patient's CT scan chest and abdomen images and concur with reported findings Abdomen/Pelvis CT 10/14/21 13:50 IMPRESSION: Multiple large masses are seen in the right breast with extension into the anterior lateral aspect of the upper abdominal wall with diffuse subcutaneous edema and soft tissue swelling. Hepatic metastasis. Small amount of pericholecystic fluid as well as small amount of fluid in the pelvis. Left renal cysts. Electronically Signed: Kleber Calix MD at 15:08 EST , Chest CT 10/14/21 14:29 IMPRESSION: Multiple large masses in the right breast with extension to the lower thoracic and abdominal james with some faint edema and overlying skin thickening. Small pulmonary nodules at both lung bases more prominent on the right lung base. Enlarged bilateral axillary lymph nodes more prominent on the right side. Liver metastasis. Electronically Signed: Kleber Calix MD at 15:12 EST ,
--- NOTE | 2021-10-15 14:11 | CASEMGMT ---
Social Work Note Consult was placed for Hospice. SW placed a call to [facility] and provided referral. SW faxed referral to [facility]. SW in to speak with pt and pt's Jorge present in room. Pt soundly sleeping, didn't wake up when this worker entered the room. SW informed Jorge that referral has been made to [facility] and they will be calling to arrange meeting time. Jorge states understanding, denied additional needs or concerns at this time. Plan: Hospice consult Rosa Orlando JET AIRCRAFT SERVICER, METALLIC YARN SLITTING MACHINE OPERATOR
--- NOTE | 2021-10-15 15:19 | CHAPLAIN ---
Type of Pastoral Visit _x__ Initial Visit ___ Follow-up Visit ___ On-call Visit ___ General Patient Visit ___ Spiritual Assessment ___ Family Conference ___ Bereavement ___ Rapid Response ___ Code Blue ___ Other (describe below) Pastoral Care Referral From _x__ Patient ___ Family ___ Nurse ___ Physician ___ Customer Account Specialist ___ Hub Cutter ___ Other (describe below) Sacrament/Intervention _x__ Active listening ___ Anointing ___ Anglican ___ Bereavement ___ Communion _x__ Renee exploration ___ ___ Life review _x__ Prayer ___ Reconciliation ___ Sacrament of Sick _x__ Supportive presence ___ Wedding ___ Other (describe below) Pastoral Comments patient has lunch tray and is awake; spouse and daughter are in room also; pt states that she learned today that she has cancer in multiple places in her body; pt first concern expressed leaving my children; pt admits that the new diagnosis is hard to take but is already thinking to admit to hospice program; pt states goal as not being in such pain; spouse and daughter also interact with this doffer and express supportive care for pt; patient has been connected to Johana Confucianist although not attending currently; discussion about what to make as her priorities for living out her life and holding on to the renee that she has in God; prayer and presence welcomed; ongoing support offered to patient and family
[2021-10-15] MEDS: Acetaminophen 325 MG Tablet 650 MG PO (18:06)
[2021-10-15] MEDS: metroNIDAZOLE 500 MG Tablet PO (20:50)
[2021-10-16 02:04] VITALS: BP 182/62; PULSE 68; RESP 18; TEMP 36.6; O2SAT 96
[2021-10-16 02:13] VITALS: BP 182/62; PULSE 68
[2021-10-16] MEDS: hydrALAZINE 20 MG/ML Vial 10 MG IV (02:13)
[2021-10-16] MEDS: 0.9% Normal Saline 1,000 ML 150 ML IV (05:15)
[2021-10-16 06:01] LABS: Absolute Lymphocyte Count 0.96 X10^3/uL (0.83-4.51); Absolute Neutrophil Count 7.6 X10^3/uL (2.0-7.7); Basophil# 0.05 X10^3/uL; Basophil% 0.5 % (0-1); Eosinophil# 0.09 X10^3/uL; Hematocrit 36.1 % (37-47); Hemoglobin 12.2 g/dL (12.0-15.0); Lymphocyte # 0.96 X10^3/ul (0.83-4.51); Lymphocyte % 10.1 % (19-41); Mean Corp Hgb Conc 33.8 g/dL (32-36); Mean Corpuscular Hgb 29.5 pg (27.0-32.0); Mean Corpuscular Volume 87.4 fL (81-99); Mean Platelet Vol. 11.3 fl (6.2-12.0); Monocyte# 0.71 X10^3/uL; Monocyte% 7.5 % (0-10); NRBC Flagged by Analyzer 0 % (0-5); Neutrophil % 80.3 % (47-70); Platelet Count 464 K/mm3 (150-450); Red Blood Count 4.13 M/mm3 (4.2-5.4); White Blood Count 9.5 K/mm3 (4.4-11.0)
[2021-10-16 07:00] LABS: BUN 21 mg/dL (7-18); Creatinine, Serum 0.79 mg/dL (0.55-1.02); Estimated Creatinine Clearance 35.55 ml/min; Glucose 53 mg/dL (74-106)
[2021-10-16 07:01] LABS: Anion Gap 11 (5-15); BUN/Creat Ratio 26.6 RATIO (10-20); Calcium,Total 12.3 mg/dL (8.5-10.1); Chloride 101 mmol/L (98-107); EST Glomerular Filtration Rate 75 mL/min (>60); Est Glom Filt Rate - Afr Amer 91 mL/min (>60); Potassium 2.6 mmol/L (3.5-5.1); Sodium Level 140 mmol/L (136-145)
[2021-10-16 08:18] VITALS: BP 151/66; PULSE 82; RESP 18; TEMP 36.7; O2SAT 97
[2021-10-16] MEDS: Potassium Chloride 10mEq/100mL 10 MEQ/100 ML IV.SOLN. 100 MEQ IV BOLUS ×4 (08:25→13:12)
--- NOTE | 2021-10-16 08:35 | CASEMGMT ---
Social Work Note Per nursing home admissions director questions, pt has completed HCPOA and LW and provided documents to [facility]. RN CM informed pt that documents are not at file at [facility] and may be brought in to be scanned. Rosa Orlando SUPERVISOR ACCOUNTS RECEIVABLE, CHAINSTITCH HEMMER
[2021-10-16 09:49] VITALS: PULSE 82
[2021-10-16] MEDS: metroNIDAZOLE 500 MG Tablet PO (09:49)
[2021-10-16] MEDS: Furosemide 40 MG/4 ML Vial IV (09:49)
[2021-10-16] MEDS: Metoprolol Tartrate 50 MG Tablet PO (09:49)
[2021-10-16] MEDS: Lisinopril 40 MG Tablet PO (09:49)
[2021-10-16] MEDS: amLODIPine 10 MG Tablet PO (09:50)
[2021-10-16 10:53] VITALS: O2SAT 95
--- NOTE | 2021-10-16 11:27 | CASEMGMT ---
Addendum entered by Rosa Orlando 10/16/21 14:45: Pt is getting ready to leave [facility]. MANA placed a call to Melissa at [facility] and updated her. Addendum entered by Rosa Orlando 10/16/21 14:37: SW faxed discharge paperwork to [facility]. Original Note: Social Work Note SW received update from Field Horticultural Specialty Grower that pt signed with [facility] and plan is home with Hospice. SW updated physician. Pt to discharge home with Hospice today. MANA placed a call to [facility] and spoke with Melissa in admissions. SW informed Melissa that pt will discharge home today with Hospice services. Melissa states to let Hospice know discharge time and to fax over discharge paperwork. Plan: Home with Hospice Rosa ZHAO, COTTON BUYER
--- NOTE | 2021-10-16 11:44 | PCM.DC.SUM ---
Providers Date of Admission: 10/14/21 Primary Care Physician: Dr. Cyndi Tyson, DO Consultations 10/14/21 16:42 Consult: General Surgery Routine Consulting Provider: Cehco Taveras Reason for Consult: Breast mass, metastatic CA EMERGENT Consult: No MD Notified: Yes Date Notified: 10/14/21 Time Notified: 15:40 Method of Notification: called Consult: Oncology/Hematology Routine Consulting Provider: Shalonda Fitzgerald Reason for Consult: Likely metastatic breast CA, new diagnosis, progressed EMERGENT Consult: No MD Notified: Yes Date Notified: 10/14/21 Time Notified: 18:59 Method of Notification: Text 10/15/21 12:48 Consult: Hospice / Palliative Care Routine Consulting Provider: [facility] Reason for Consult: advanced breast cancer EMERGENT Consult: Yes MD Notified: Yes Date Notified: 10/15/21 Time Notified: 12:48 Method of Notification: office Reason For Visit: METASTATIC CANCER / INTRACTABLE N/V Diagnosis Discharge Diagnosis (1) Breast cancer: Status: Acute Code(s): C50.919 - Malignant neoplasm of unspecified site of unspecified female breast Qualifiers: Breast location: overlapping sites of breast Estrogen receptor status: unspecified Patient sex: female Laterality: right Qualified Code(s): C50.811 - Malignant neoplasm of overlapping sites of right female breast (2) Liver metastases: Status: Acute Code(s): C78.7 - Secondary malignant neoplasm of liver and intrahepatic bile duct (3) Regional lymph node metastasis present: Status: Acute Code(s): C77.9 - Secondary and unspecified malignant neoplasm of lymph node, unspecified (4) Lung metastases: Status: Acute Code(s): C78.00 - Secondary malignant neoplasm of unspecified lung Qualifiers: Laterality: bilateral Qualified Code(s): C78.01 - Secondary malignant neoplasm of right lung; C78.02 - Secondary malignant neoplasm of left lung (5) Hypercalcemia of malignancy: Status: Acute Code(s): E83.52 - Hypercalcemia (6) Cancer cachexia: Status: Acute Code(s): R64 - Cachexia (7) Intractable nausea and vomiting: Status: Acute Code(s): R11.2 - Nausea with vomiting, unspecified Medications at Discharge Home Medications albuterol sulfate 1 inh INHALATION Q6H PRN 10/14/21 amlodipine 10 mg PO DAILY 10/14/21 hydrochlorothiazide 50 mg PO DAILY 10/14/21 lisinopril 40 mg PO DAILY 10/14/21 metoprolol tartrate 50 mg PO BID 10/14/21 Hospital Course Operations None Procedures None Summary of Care Provided Minutes Spent on Discharge: 47 Hospital Course: Patient is a 76-year-old female with past medical history as outlined was admitted through the ED on 10/14/2021 with a complaint of intractable nausea and vomiting for 8 days. Patient had not been able to keep any food or fluids or her blood pressure medication down. She said her granddaughter had recently had Asya-Ogden virus infection so she thought that is what she had. Patient also revealed that she had a right necrotic foul-smelling breast mass which have been present for about 5 years and had not sought any treatment because she was scared of cancer treatment. On admission, significant findings were calcium of 15.1 and magnesium of 1.6. CT of the chest showed multiple large masses in the right breast with extension into the lower thoracic and abdominal wall with some faint edema overlying the skin thickening and small pulmonary nodules at both lung bases more prominent in the right lung base with enlarged bilateral axillary lymph nodes as well as liver metastasis. CT of the abdomen and pelvis showed hepatic metastasis as well as small amount of pericholecystic fluid and also showed multiple large masses in the right breast. She was admitted and managed for intractable nausea and vomiting as well as hypercalcemia and metastatic cancer most likely of breast origin. Oncology and general surgery were consulted. General surgery did not deem her mass to be resectable. Oncology reviewed patient and recommended hospice consult. Patient was aggressively hydrated with IV fluids and also given IV Lasix and calcium gradually trended down. Hospice evaluated patient and patient opted to sign on with home hospice. She was therefore discharged home with home hospice on 10/16/2021. Patient seen and examined prior to discharge. She had no active complaints. Review of systems otherwise negative. Labs and vitals reviewed. Home medication reviewed and reconciled. Physical Exam Const alert, oriented x3 and no apparent distress General Appearance: cooperative and comfortable Exam Limitations: no limitations HEENT normocephalic, head/scalp atraumatic, hearing grossly normal bilaterally and moist oral mucous membranes Eyes PERRL, EOMs intact bilaterally and conjunctivae normal Neck no lymphadenopathy, supple and no JVD Resp normal respiratory effort, no retractions, no use of accessory muscles and clear to auscultation bilaterally Cardio regular rate, regular rhythm, S1 normal heart sound, S2 normal heart sound and no murmurs GI normal to inspection, nondistended, normoactive bowel sounds, soft to palpation, non-tender and non-distended Extremity normal to inspection, full ROM and no clubbing, cyanosis or edema Skin Skin Narrative: large, firm, nodular necrotic mass that has virtually replaced the right breast, non tender to touch; has very offensive odor Neuro oriented x3, CN's II-XII intact bilaterally and moves all extremities Sensorium / Orientation: awake and alert Psych affect normal Weight / BMI Weight Weight: 121 lb 0.54 oz Body Mass Index (BMI) 22.4 ABG / Lab / Microbiology Data Result Diagrams: 10/16/21 04:20 10/16/21 04:20 Laboratory: Laboratory Results - last 24 hr 10/16/21 04:20: WBC 9.5, RBC 4.13 L, Hgb 12.2, Hct 36.1 L, MCV 87.4, MCH 29.5, MCHC 33.8, RDW Std Deviation 48.0 H, RDW Coeff of Samuel 15.0 H, Plt Count 464 H, MPV 11.3, Immature Gran % (Auto) 0.600, Neut % (Auto) 80.3 H, Lymph % (Auto) 10.1 L, [place] % (Auto) 7.5, Eos % (Auto) 1.0, Baso % (Auto) 0.5, Absolute Neuts (auto) 7.6, Absolute Lymphs (auto) 0.96, Nucleated RBC % 0 10/16/21 04:20: Sodium 140, Potassium 2.6 L*, Chloride 101, Carbon Dioxide 28.0, Anion Gap 11, BUN 21 H, Creatinine 0.79, Estim Creat Clear Calc 35.55, Est GFR (MDRD) Af Amer 91, Est GFR (MDRD) Non-Af 75, BUN/Creatinine Ratio 26.6 H, Glucose 53 L, Calcium 12.3 H D/C Instructions Discharge Diet: Low fat / Low cholesterol Discharge Activity: Return to Normal Activity Weight Bearing Status: Weight bearing as tolerated Meaningful Use Info Meaningful Use Diagnoses (Choose all that apply): None applicable Discharge Plan Admission Admit Date/Time: 10/14/21 15:39 Primary Reason for Your Visit: nausea and vomiting, hypercalcemia, metastatic breast cancer Attending Provider: Pat Shahid Primary Care Provider: Cyndi Tyson Consulting Providers: Checo Taveras ; Shalonda Fitzgerald ; Ksenia Dunlap ; Casper Goldberg ; Odilia Mc ; Gissel Michel ; Poly Mane ; Elma Reagan INFORMATION TECHNOLOGY OFFICER Discharge Orders/Prescriptions Prescriptions: No Action amlodipine 10 mg tablet 10 mg PO DAILY RF: 0 metoprolol tartrate 50 mg tablet 50 mg PO BID RF: 0 hydrochlorothiazide 50 mg Tablet 50 mg PO DAILY RF: 0 albuterol sulfate 90 mcg/actuation Hfa Aerosol Inhaler 1 inh INHALATION Q6H PRN (Reason: sob) RF: 0 lisinopril 40 mg Tablet 40 mg PO DAILY RF: 0 Referrals / Follow Up: Cyndi Tyson, [Primary Care Provider] - Within 2 Weeks Disposition Disposition (needs filled in before D/C Order can be placed): Hospice in Home Charges/Coding Visit Charges Inpatient E&M: 73507 Disch Hosp
[2021-10-16 12:04] VITALS: BP 151/66; PULSE 82; RESP 18; TEMP 36.7; O2SAT 97
[2021-10-16] MEDS: Acetaminophen 325 MG Tablet 650 MG PO (13:11)
== END 2021-10-16 14:56 | disposition hospice, home (50) | DRG 392 ==
LOC: ED 15:39 → MS3 16:11
PROVIDERS: Admitting Provider Family Medicine; Emergency Provider Student in an Organized Health Care Education/Training Program; Visit Provider Student in an Organized Health Care Education/Training Program
DX: R11.2 Nausea with vomiting, unspecified (principal); R64 Cachexia; C78.01 Secondary malignant neoplasm of right lung; C78.02 Secondary malignant neoplasm of left lung; C77.3 Secondary and unspecified malignant neoplasm of axilla and upper limb lymph nodes; C79.51 Secondary malignant neoplasm of bone; C78.7 Secondary malignant neoplasm of liver and intrahepatic bile duct; E86.0 Dehydration; C50.811 Malignant neoplasm of overlapping sites of right female breast; N18.30 Chronic kidney disease, stage 3 unspecified; E83.52 Hypercalcemia; I12.9 Hypertensive chronic kidney disease with stage 1 through stage 4 chronic kidney disease, or unspecified chronic kidney disease; E87.6 Hypokalemia; F41.9 Anxiety disorder, unspecified; H91.91 Unspecified hearing loss, right ear; N28.1 Cyst of kidney, acquired; Z79.899 Other long term (current) drug therapy; Z68.23 Body mass index [BMI] 23.0-23.9, adult
CPT/HCPCS: 36415; 71250; 74177; 80048; 80053; 81001; 82330; 83690; 83735; 85025; 85610; 85730; 86308; 97802; 99251; 99285; J7030; J7050; Q9967; A4216; G0463; J1940; J2405; J2430; J3490